=== PATIENT | male | born 1945 | race Hispanic/Latino ===

== ENCOUNTER 2020-11-09 13:49 | Inpatient (IN) | payer MEDICARE, MEDICAID ==
[~2020-11-09] VITALS: Ht 175.3 cm; Wt 68.9 kg
[2020-11-09 13:51] VITALS: BP 112/67
[2020-11-09 14:29] LABS: BASOPHILS % (AUTO) 0.4 % (0.0-5.0); EOSINOPHILS % (AUTO) 0.3 % (0.0-8.0); HEMATOCRIT 49.3 % (42-54); LYMPHOCYTES % (AUTO) 5.7 % (21.0-51.0); MEAN CORPUSCULAR HEMOGLOBIN 29.8 pg (27.0-33.0); MEAN CORPUSCULAR HGB CONC 32.7 g/dL (32.0-36.0); MEAN CORPUSCULAR VOLUME 91.3 fL (79-99); MONOCYTES % (AUTO) 4.8 % (3.0-13.0); NEUTROPHILS % (AUTO) 86.8 % (40.0-77.0); PLATELET COUNT (AUTO) 266 K/uL (130-400); RED CELL DISTRIBUTION WIDTH 14.5 % (11.0-15.5); WHITE BLOOD COUNT (AUTO) 14.3 K/uL (4.8-10.8)
[2020-11-09 14:51] LABS: ALBUMIN 1.9 g/dL (3.5-5.0); BILIRUBIN,TOTAL 1.1 mg/dL (0.2-1.0); CREATININE 3.2 mg/dL (0.5-1.5); POTASSIUM 5.5 mmol/L (3.5-5.1); TOTAL PROTEIN, SERUM 6.9 g/dL (6.0-8.3); TROPONIN I 0.06 ng/mL (0.00-0.06)
[2020-11-09] MEDS ORDERED: FAMOTIDINE 20MG VIAL IV SCH (15:00)
[2020-11-09] MEDS ORDERED: 0.9%NACL 1000ML 1,000 ML IV SCH (15:00)
[2020-11-09] MEDS ORDERED: SOLU-MEDROL 125MG VIAL IVP SCH (15:00)
[2020-11-09 15:23] LABS: CRP QUANTITATIVE 515.9 mg/L (0.00-9.0)
[2020-11-09] MEDS ORDERED: ACETAMINOPHEN 650 MG SUPPOSITORY RC ONE (15:30)
[2020-11-09] MEDS: ENOXAPARIN SODIUM 80 MG/0.8 ML SQ SCH (16:51)
[2020-11-09 16:52] VITALS: BP 111/66
[2020-11-09] MEDS ORDERED: ONDANSETRON 4MG INJ IV PRN (17:00)
[2020-11-09] MEDS ORDERED: [UNRECOGNIZED DRUG - REMARK] MISC SCH (17:00)
[2020-11-09] MEDS ORDERED: 0.9%NACL 1000ML 500 ML IV ONE (17:00)
[2020-11-09] MEDS: HEPARIN 5,000 UNIT VIAL SQ SCH (17:30)
[2020-11-09] MEDS ORDERED: HEPARIN 5,000 UNIT VIAL SQ SCH (17:30)
[2020-11-09 17:35] LABS: HEMOGLOBIN A1C 5.8 % (4.0-6.0)
[2020-11-09 17:58] VITALS: BP 111/74
[2020-11-09 18:18] LABS: CREATININE 3.2 mg/dL (0.5-1.5); POTASSIUM 5.4 mmol/L (3.5-5.1)
[2020-11-09] MEDS ORDERED: ALBUTEROL INHALER 90MCG/INH IH SCH (19:00)
[2020-11-09 19:05] VITALS: BP 108/12
[2020-11-09 20:37] LABS: ABG HCO3 19.2 mmol/L (21.0-28.0); ABG OXYGEN SATURATION 97.9 % (95.0-99.0); ABG PCO2 34 mmHg (35-48)
[2020-11-09] MEDS: DOXYCYCLINE 100MG+NS 250ML IV SCH (21:23)
[2020-11-09] MEDS: SOLU-MEDROL 40MG VIAL IVP SCH (21:23)
[2020-11-09] MEDS: CEFTRIAXONE 1G VIAL IVP SCH (21:23)
[2020-11-09] MEDS: FAMOTIDINE 20MG TAB PO SCH (21:23)
[2020-11-09] MEDS: ALBUTEROL INHALER 90MCG/INH IH SCH (21:34)
[2020-11-09] MEDS ORDERED: KAYEXALATE 15GM/60ML PO ONE (22:30)
[2020-11-09 22:37] VITALS: BP 106/81
[2020-11-10] MEDS: HEPARIN 5,000 UNIT VIAL SQ SCH ×3 (02:30→16:45)
[2020-11-10] MEDS: ALBUTEROL INHALER 90MCG/INH IH SCH ×4 (02:52→19:38)
[2020-11-10 03:17] VITALS: BP 106/64
[2020-11-10 03:33] LABS: BILIRUBIN,URINE Negative (NEGATIVE); COLOR,URINE Yellow (YELLOW); GLUCOSE, URINE (UA) Negative (NEGATIVE); KETONES,URINE 15 mg/dL (NEGATIVE); LEUKOCYTE ESTERASE ,URINE Negative (NEGATIVE); NITRATE,URINE Negative (NEGATIVE); OCCULT BLOOD,URINE Negative (NEGATIVE); PROTEIN,URINE POS 1+ mg/dL (NEGATIVE)
[2020-11-10 03:35] LABS: CREATININE,URINE RANDOM 98 mg/dL (30-135); SODIUM,URINE RANDOM 24 mmol/l (40-220)
[2020-11-10 03:36] LABS: APPEARANCE,URINE HAZY (CLEAR)
[2020-11-10 03:41] LABS: BACTERIA,URINE Moderate /HPF (None Seen); RBC,URINE 0-1 /HPF (0-1); SQUAMOUS EPITHELIAL CELL,UR 0-2 /HPF (0-2)
[2020-11-10 04:13] VITALS: BP 134/71
[2020-11-10 06:06] LABS: BASOPHILS % (AUTO) 0.5 % (0.0-5.0); EOSINOPHILS % (AUTO) 0.1 % (0.0-8.0); HEMATOCRIT 43.7 % (42-54); LYMPHOCYTES % (AUTO) 5.9 % (21.0-51.0); MEAN CORPUSCULAR HEMOGLOBIN 29.8 pg (27.0-33.0); MEAN CORPUSCULAR HGB CONC 31.6 g/dL (32.0-36.0); MEAN CORPUSCULAR VOLUME 94.4 fL (79-99); MONOCYTES % (AUTO) 3.1 % (3.0-13.0); NEUTROPHILS % (AUTO) 85.4 % (40.0-77.0); PLATELET COUNT (AUTO) 264 K/uL (130-400); RED BLOOD CELL COUNT(AUTO) 4.63 MIL/uL (4.50-6.20); RED CELL DISTRIBUTION WIDTH 15.1 % (11.0-15.5); WHITE BLOOD COUNT (AUTO) 11.6 K/uL (4.8-10.8)
[2020-11-10 06:28] LABS: BILIRUBIN,TOTAL 0.8 mg/dL (0.2-1.0); CREATININE 2.7 mg/dL (0.5-1.5); TOTAL PROTEIN, SERUM 6.3 g/dL (6.0-8.3)
[2020-11-10 06:35] LABS: ALBUMIN 1.8 g/dL (3.5-5.0)
[2020-11-10 06:36] LABS: CRP QUANTITATIVE 345.2 mg/L (0.00-9.0)
[2020-11-10] MEDS ORDERED: PANT40TA54 PO (06:45)
[2020-11-10] MEDS ORDERED: LOSA25TA41 PO (06:45)
[2020-11-10] MEDS ORDERED: EZET10TA48 PO (06:45)
[2020-11-10] MEDS: ENOXAPARIN SODIUM 80 MG/0.8 ML SQ SCH (07:31)
[2020-11-10 08:18] LABS: ABG BASE EXCESS -5.8 mmol/L (-2.0-3.0); ABG HCO3 19.1 mmol/L (21.0-28.0); ABG OXYGEN SATURATION 96.3 % (95.0-99.0); ABG PCO2 36 mmHg (35-48)
[2020-11-10] MEDS: DOXYCYCLINE 100MG+NS 250ML IV SCH ×2 (08:19→19:37)
[2020-11-10] MEDS: FAMOTIDINE 20MG TAB PO SCH (08:19)
[2020-11-10] MEDS: CEFTRIAXONE 1G VIAL IVP SCH ×2 (08:19→19:37)
[2020-11-10] MEDS: SOLU-MEDROL 40MG VIAL IVP SCH ×2 (08:20→20:00)
[2020-11-10 08:22] VITALS: BP 113/62
[2020-11-10] MEDS ORDERED: DEXAMETHASONE 4 MG TAB PO SCH (09:00)
[2020-11-10] MEDS ORDERED: ENOXAPARIN SODIUM 40 MG/0.4 ML SYRINGE SQ SCH (09:00)
[2020-11-10] MEDS ORDERED: FUROSEMIDE 40MG VIAL IV SCH (09:57)
[2020-11-10 11:00] VITALS: BP 129/71
[2020-11-10 16:01] VITALS: BP 110/76
[2020-11-10 19:26] LABS: PROTHROMBIN TIME 10.9 SEC (9.6-11.6)
[2020-11-10 19:27] LABS: PARTIAL THROMBOPLASTIN TIME 39.7 SEC (26.3-35.5)
[2020-11-10 20:00] VITALS: BP_SYST 135; BP_SYST 137; BP_DIAS 60; BP_DIAS 68
[2020-11-11] VITALS: BP 126/72
[2020-11-11] MEDS: HEPARIN 5,000 UNIT VIAL SQ SCH ×3 (01:49→16:21)
[2020-11-11] MEDS: ALBUTEROL INHALER 90MCG/INH IH SCH ×4 (01:49→19:33)
[2020-11-11 04:00] VITALS: BP 139/71
[2020-11-11 06:14] LABS: BASOPHILS % (AUTO) 0.7 % (0.0-5.0); EOSINOPHILS % (AUTO) 0.1 % (0.0-8.0); HEMATOCRIT 44.5 % (42-54); LYMPHOCYTES % (AUTO) 5.7 % (21.0-51.0); MEAN CORPUSCULAR HEMOGLOBIN 29.7 pg (27.0-33.0); MEAN CORPUSCULAR VOLUME 95.7 fL (79-99); MONOCYTES % (AUTO) 5.4 % (3.0-13.0); NEUTROPHILS % (AUTO) 82.3 % (40.0-77.0); NUCLEATED RED BLOOD CELLS 0.1 % (0.0-0.19); PLATELET COUNT (AUTO) 333 K/uL (130-400); RED BLOOD CELL COUNT(AUTO) 4.65 MIL/uL (4.50-6.20); RED CELL DISTRIBUTION WIDTH 15.4 % (11.0-15.5); WHITE BLOOD COUNT (AUTO) 17.2 K/uL (4.8-10.8)
[2020-11-11 06:31] LABS: ALBUMIN 1.9 g/dL (3.5-5.0); BILIRUBIN,TOTAL 0.6 mg/dL (0.2-1.0); CREATININE 2.4 mg/dL (0.5-1.5); POTASSIUM 4.3 mmol/L (3.5-5.1); TOTAL PROTEIN, SERUM 6.5 g/dL (6.0-8.3)
[2020-11-11 08:00] VITALS: BP 136/73
[2020-11-11] MEDS: DOXYCYCLINE 100MG+NS 250ML IV SCH ×2 (08:32→19:34)
[2020-11-11] MEDS: CEFTRIAXONE 1G VIAL IVP SCH ×2 (08:32→19:34)
[2020-11-11] MEDS: FAMOTIDINE 20MG TAB PO SCH (08:32)
[2020-11-11] MEDS: SOLU-MEDROL 40MG VIAL IVP SCH ×2 (08:33→20:00)
[2020-11-11 12:00] VITALS: BP 159/80
[2020-11-11] MEDS: DEXTROSE 5%-WATER 1,000 ML IV SCH (15:01)
[2020-11-11 16:00] VITALS: BP 158/90
[2020-11-11 16:51] LABS: CREATININE,URINE RANDOM 90 mg/dL (30-135); SODIUM,URINE RANDOM 22 mmol/l (40-220)
[2020-11-11 20:00] VITALS: BP 138/83
[2020-11-12] VITALS: BP 157/81
[2020-11-12] MEDS: ALBUTEROL INHALER 90MCG/INH IH SCH ×4 (01:06→19:34)
[2020-11-12] MEDS: HEPARIN 5,000 UNIT VIAL SQ SCH ×3 (01:06→16:47)
[2020-11-12 04:00] VITALS: BP 145/79
[2020-11-12 05:46] LABS: BASOPHILS % (AUTO) 0.5 % (0.0-5.0); HEMATOCRIT 40.7 % (42-54); MEAN CORPUSCULAR HEMOGLOBIN 30.7 pg (27.0-33.0); MEAN CORPUSCULAR HGB CONC 32.4 g/dL (32.0-36.0); MEAN CORPUSCULAR VOLUME 94.7 fL (79-99); MONOCYTES % (AUTO) 5.4 % (3.0-13.0); NUCLEATED RED BLOOD CELLS 0.1 % (0.0-0.19); PLATELET COUNT (AUTO) 344 K/uL (130-400); RED CELL DISTRIBUTION WIDTH 15.4 % (11.0-15.5); WHITE BLOOD COUNT (AUTO) 15.9 K/uL (4.8-10.8)
[2020-11-12] MEDS: DEXTROSE 5%-WATER 1,000 ML IV SCH ×2 (06:09→11:00)
[2020-11-12 06:14] LABS: ALBUMIN 2.1 g/dL (3.5-5.0); BILIRUBIN,TOTAL 0.7 mg/dL (0.2-1.0); CREATININE 2.2 mg/dL (0.5-1.5); CRP QUANTITATIVE 88.8 mg/L (0.00-9.0); MAGNESIUM 3.2 mg/dL (1.80-2.40); POTASSIUM 4.3 mmol/L (3.5-5.1); TOTAL PROTEIN, SERUM 6.3 g/dL (6.0-8.3)
[2020-11-12] MEDS: CEFTRIAXONE 1G VIAL IVP SCH ×2 (08:30→19:34)
[2020-11-12] MEDS: FAMOTIDINE 20MG TAB PO SCH (08:30)
[2020-11-12] MEDS: DOXYCYCLINE 100MG+NS 250ML IV SCH ×2 (08:30→19:34)
[2020-11-12] MEDS: SOLU-MEDROL 40MG VIAL IVP SCH ×2 (08:30→20:23)
[2020-11-12 10:23] LABS: ABG BASE EXCESS -1.6 mmol/L (-2.0-3.0); ABG HCO3 21.9 mmol/L (21.0-28.0); ABG OXYGEN SATURATION 91.2 % (95.0-99.0); ABG PCO2 34 mmHg (35-48)
[2020-11-12] MEDS ORDERED: AMLODIPINE 5 MG TAB PO SCH (10:30)
[2020-11-12 12:00] VITALS: BP 155/97
[2020-11-12] MEDS ORDERED: DEXTROSE 5%-WATER 1,000 ML IV ONE (13:30)
[2020-11-12 16:00] VITALS: BP 153/92
[2020-11-12] MEDS ORDERED: 0.9% NACL 250ML 250 ML ONE (19:32)
[2020-11-12] MEDS: INSULIN HUMULIN R 100 UNIT/ML 3ML SQ SCH (19:41)
[2020-11-12 20:00] VITALS: BP 150/80
[2020-11-13] VITALS (7 sets, daily range): BP systolic 101–146; BP diastolic 59–83
[2020-11-13] MEDS: HEPARIN 5,000 UNIT VIAL SQ SCH ×3 (00:30→17:54)
[2020-11-13] MEDS: INSULIN HUMULIN R 100 UNIT/ML 3ML SQ SCH ×4 (00:31→17:56)
[2020-11-13] MEDS: ALBUTEROL INHALER 90MCG/INH IH SCH ×4 (01:19→21:44)
[2020-11-13] MEDS: DEXTROSE 5%-WATER 1,000 ML IV SCH ×2 (03:20→21:44)
[2020-11-13 04:47] LABS: BASOPHILS % (AUTO) 0.3 % (0.0-5.0); HEMATOCRIT 40.9 % (42-54); LYMPHOCYTES % (AUTO) 3.1 % (21.0-51.0); MEAN CORPUSCULAR HEMOGLOBIN 29.6 pg (27.0-33.0); MEAN CORPUSCULAR HGB CONC 30.6 g/dL (32.0-36.0); MEAN CORPUSCULAR VOLUME 96.9 fL (79-99); MONOCYTES % (AUTO) 4.3 % (3.0-13.0); NEUTROPHILS % (AUTO) 86.4 % (40.0-77.0); NUCLEATED RED BLOOD CELLS 0.1 % (0.0-0.19); PLATELET COUNT (AUTO) 340 K/uL (130-400); RED BLOOD CELL COUNT(AUTO) 4.22 MIL/uL (4.50-6.20); RED CELL DISTRIBUTION WIDTH 15.3 % (11.0-15.5)
[2020-11-13 05:00] LABS: CREATININE 2.1 mg/dL (0.5-1.5); CRP QUANTITATIVE 54.2 mg/L (0.00-9.0); POTASSIUM 4.4 mmol/L (3.5-5.1)
[2020-11-13] MEDS ORDERED: PANTOPRAZOLE 40 MG TAB DR PO SCH ×2 (08:14→09:00)
[2020-11-13] MEDS ORDERED: 0.9% NACL 250ML 250 ML ONE (08:18)
[2020-11-13] MEDS: DOXYCYCLINE 100MG+NS 250ML IV SCH ×2 (08:22→21:12)
[2020-11-13] MEDS: CEFTRIAXONE 1G VIAL IVP SCH ×2 (08:22→21:12)
[2020-11-13] MEDS: AMLODIPINE 5 MG TAB PO SCH (08:28)
[2020-11-13] MEDS ORDERED: DEXAMETHASONE SOD PHOSPHATE 4 MG/ML 1ML VIAL IVP SCH (09:00)
[2020-11-13 14:46] LABS: CREATININE 1.8 mg/dL (0.5-1.5); POTASSIUM 4.9 mmol/L (3.5-5.1)
[2020-11-13] MEDS ORDERED: INSULIN GLARGINE 100 UNITS/ML 10 ML VIAL SQ SCH (15:00)
[2020-11-13] MEDS ORDERED: LACTULOSE 20 GM/30 ML UDCUP PO PRN (16:00)
[2020-11-13 20:51] LABS: CREATININE 1.9 mg/dL (0.5-1.5); POTASSIUM 4.5 mmol/L (3.5-5.1)
[2020-11-14] MEDS: HEPARIN 5,000 UNIT VIAL SQ SCH ×3 (01:30→16:52)
[2020-11-14] MEDS: ALBUTEROL INHALER 90MCG/INH IH SCH ×4 (02:00→19:41)
[2020-11-14 04:30] VITALS: BP 124/72
[2020-11-14 05:53] LABS: BASOPHILS % (AUTO) 0.3 % (0.0-5.0); HEMATOCRIT 35.9 % (42-54); LYMPHOCYTES % (AUTO) 2.8 % (21.0-51.0); MEAN CORPUSCULAR HEMOGLOBIN 30.4 pg (27.0-33.0); MONOCYTES % (AUTO) 7.6 % (3.0-13.0); NEUTROPHILS % (AUTO) 84.3 % (40.0-77.0); NUCLEATED RED BLOOD CELLS 0.1 % (0.0-0.19); PLATELET COUNT (AUTO) 327 K/uL (130-400); RED BLOOD CELL COUNT(AUTO) 3.78 MIL/uL (4.50-6.20); RED CELL DISTRIBUTION WIDTH 14.9 % (11.0-15.5); WHITE BLOOD COUNT (AUTO) 20.6 K/uL (4.8-10.8)
[2020-11-14 06:13] LABS: ALBUMIN 2.1 g/dL (3.5-5.0); BILIRUBIN,TOTAL 0.4 mg/dL (0.2-1.0); CREATININE 1.7 mg/dL (0.5-1.5); MAGNESIUM 2.5 mg/dL (1.80-2.40); POTASSIUM 4.7 mmol/L (3.5-5.1); TOTAL PROTEIN, SERUM 5.4 g/dL (6.0-8.3)
[2020-11-14] MEDS: INSULIN HUMULIN R 100 UNIT/ML 3ML SQ SCH ×4 (06:31→17:21)
[2020-11-14 07:29] VITALS: BP 129/71
[2020-11-14] MEDS ORDERED: LANSOPRAZOLE 15 MG SOLU TAB PO SCH (07:30)
[2020-11-14] MEDS ORDERED: INSULIN GLARGINE 100 UNITS/ML 10 ML VIAL SQ SCH (09:00)
[2020-11-14] MEDS ORDERED: ZOSYN 3.375GM+NS 50ML 50 ML ONE (10:18)
[2020-11-14] MEDS: DOXYCYCLINE 100MG+NS 250ML IV SCH ×2 (10:22→19:41)
[2020-11-14] MEDS ORDERED: ZOSYN 3.375GM+NS 50ML 3.38 GM in 0.9%NACL 50ML 50 ML IV SCH (10:30)
[2020-11-14] MEDS: AMLODIPINE 5 MG TAB PO SCH (10:31)
[2020-11-14] MEDS: DEXAMETHASONE 4 MG TAB PO SCH (10:31)
[2020-11-14] MEDS: ZOSYN 3.375GM+NS 50ML 50 ML IV SCH ×2 (10:36→20:00)
[2020-11-14] MEDS: DEXTROSE 5%-WATER 1,000 ML IV SCH ×2 (10:36→16:44)
[2020-11-14 11:28] VITALS: BP 117/64
[2020-11-14 16:07] VITALS: BP 104/55
[2020-11-14 20:00] VITALS: BP 98/57
[2020-11-14 23:54] VITALS: BP 114/67
[2020-11-15] MEDS: HEPARIN 5,000 UNIT VIAL SQ SCH (00:47)
[2020-11-15] MEDS: INSULIN HUMULIN R 100 UNIT/ML 3ML SQ SCH ×4 (00:48→18:00)
[2020-11-15] MEDS: ALBUTEROL INHALER 90MCG/INH IH SCH ×3 (01:03→14:09)
[2020-11-15] MEDS: DEXTROSE 5%-WATER 1,000 ML IV SCH (01:03)
[2020-11-15 04:10] VITALS: BP 133/68
[2020-11-15 05:51] LABS: BASOPHILS % (AUTO) 0.4 % (0.0-5.0); HEMATOCRIT 30.6 % (42-54); LYMPHOCYTES % (AUTO) 2.7 % (21.0-51.0); MEAN CORPUSCULAR HEMOGLOBIN 29.9 pg (27.0-33.0); MEAN CORPUSCULAR HGB CONC 31.7 g/dL (32.0-36.0); MEAN CORPUSCULAR VOLUME 94.4 fL (79-99); MONOCYTES % (AUTO) 5.9 % (3.0-13.0); NEUTROPHILS % (AUTO) 84.6 % (40.0-77.0); NUCLEATED RED BLOOD CELLS 0.1 % (0.0-0.19); PLATELET COUNT (AUTO) 266 K/uL (130-400); RED BLOOD CELL COUNT(AUTO) 3.24 MIL/uL (4.50-6.20); RED CELL DISTRIBUTION WIDTH 14.2 % (11.0-15.5); WHITE BLOOD COUNT (AUTO) 26.4 K/uL (4.8-10.8)
[2020-11-15 06:05] LABS: ALBUMIN 1.9 g/dL (3.5-5.0); BILIRUBIN,TOTAL 0.3 mg/dL (0.2-1.0); CREATININE 1.4 mg/dL (0.5-1.5); CRP QUANTITATIVE 16.2 mg/L (0.00-9.0); POTASSIUM 4.3 mmol/L (3.5-5.1); TOTAL PROTEIN, SERUM 4.8 g/dL (6.0-8.3)
[2020-11-15 08:00] VITALS: BP 124/61
[2020-11-15] MEDS: DOXYCYCLINE 100MG+NS 250ML IV SCH (08:51)
[2020-11-15] MEDS: ZOSYN 3.375GM+NS 50ML 50 ML IV SCH ×2 (08:51→21:35)
[2020-11-15] MEDS: PANTOPRAZOLE 40 MG/VIAL IVP SCH ×2 (08:52→21:35)
[2020-11-15] MEDS: DEXAMETHASONE 4 MG TAB PO SCH (08:53)
[2020-11-15] MEDS: AMLODIPINE 5 MG TAB PO SCH (08:53)
[2020-11-15] MEDS: INSULIN GLARGINE 100 UNITS/ML 10 ML VIAL SQ SCH (08:55)
[2020-11-15 12:00] VITALS: BP 113/64
[2020-11-15] MEDS: LEVOFLOXACIN 500 MG/D5W 100 ML 100 ML IV SCH (14:48)
[2020-11-15 16:00] VITALS: BP 98/63
[2020-11-15 20:17] VITALS: BP 99/61
[2020-11-15 23:24] VITALS: BP 158/62
[2020-11-16 04:08] VITALS: BP 113/68
[2020-11-16 05:52] LABS: BASOPHILS % (AUTO) 0.3 % (0.0-5.0); HEMATOCRIT 30.1 % (42-54); LYMPHOCYTES % (AUTO) 3.8 % (21.0-51.0); MEAN CORPUSCULAR HEMOGLOBIN 29.6 pg (27.0-33.0); MEAN CORPUSCULAR HGB CONC 31.9 g/dL (32.0-36.0); MEAN CORPUSCULAR VOLUME 92.9 fL (79-99); MONOCYTES % (AUTO) 5.7 % (3.0-13.0); NEUTROPHILS % (AUTO) 82.3 % (40.0-77.0); NUCLEATED RED BLOOD CELLS 0.1 % (0.0-0.19); PLATELET COUNT (AUTO) 315 K/uL (130-400); RED BLOOD CELL COUNT(AUTO) 3.24 MIL/uL (4.50-6.20); RED CELL DISTRIBUTION WIDTH 14.1 % (11.0-15.5); WHITE BLOOD COUNT (AUTO) 28.6 K/uL (4.8-10.8)
[2020-11-16] MEDS: INSULIN HUMULIN R 100 UNIT/ML 3ML SQ SCH ×3 (06:00→18:39)
[2020-11-16 06:02] LABS: CREATININE 1.2 mg/dL (0.5-1.5); MAGNESIUM 1.8 mg/dL (1.80-2.40); POTASSIUM 4.4 mmol/L (3.5-5.1)
[2020-11-16 08:00] VITALS: BP 123/92
[2020-11-16] MEDS: ALBUTEROL INHALER 90MCG/INH IH SCH ×3 (08:00→20:38)
[2020-11-16] MEDS: ZOSYN 3.375GM+NS 50ML 50 ML IV SCH ×2 (09:15→20:38)
[2020-11-16] MEDS: PANTOPRAZOLE 40 MG/VIAL IVP SCH ×2 (09:16→20:38)
[2020-11-16] MEDS: AMLODIPINE 5 MG TAB PO SCH (09:18)
[2020-11-16] MEDS: DEXAMETHASONE 4 MG TAB PO SCH (09:18)
[2020-11-16] MEDS: INSULIN GLARGINE 100 UNITS/ML 10 ML VIAL SQ SCH (09:20)
[2020-11-16 12:00] VITALS: BP 110/62
[2020-11-16 16:00] VITALS: BP 110/59
[2020-11-16] MEDS: LEVOFLOXACIN 500 MG/D5W 100 ML 100 ML IV SCH (17:54)
[2020-11-16 20:12] VITALS: BP 112/62
[2020-11-17] VITALS (7 sets, daily range): BP systolic 122–146; BP diastolic 61–72
[2020-11-17] MEDS: ALBUTEROL INHALER 90MCG/INH IH SCH ×4 (01:08→19:57)
[2020-11-17] MEDS: INSULIN HUMULIN R 100 UNIT/ML 3ML SQ SCH ×4 (06:00→17:59)
[2020-11-17 06:05] LABS: BASOPHILS % (AUTO) 0.1 % (0.0-5.0); EOSINOPHILS % (AUTO) 0.1 % (0.0-8.0); HEMATOCRIT 28.8 % (42-54); LYMPHOCYTES % (AUTO) 3.5 % (21.0-51.0); MEAN CORPUSCULAR HEMOGLOBIN 30.1 pg (27.0-33.0); MEAN CORPUSCULAR HGB CONC 32.6 g/dL (32.0-36.0); MEAN CORPUSCULAR VOLUME 92.3 fL (79-99); MONOCYTES % (AUTO) 5.5 % (3.0-13.0); NEUTROPHILS % (AUTO) 81.7 % (40.0-77.0); NUCLEATED RED BLOOD CELLS 0.2 % (0.0-0.19); PLATELET COUNT (AUTO) 339 K/uL (130-400); RED BLOOD CELL COUNT(AUTO) 3.12 MIL/uL (4.50-6.20); RED CELL DISTRIBUTION WIDTH 14.1 % (11.0-15.5)
[2020-11-17 06:12] LABS: WHITE BLOOD COUNT (AUTO) 31.3 K/uL (4.8-10.8)
[2020-11-17 06:24] LABS: CREATININE 1.2 mg/dL (0.5-1.5); CRP QUANTITATIVE 10.1 mg/L (0.00-9.0); POTASSIUM 4.4 mmol/L (3.5-5.1)
[2020-11-17 07:12] LABS: LYMPHOCYTES % (MANUAL) 10 % (22-44); MAN.DIFF COMMENT-IMPRESSION MANUAL DIFFERENTIAL; MONOCYTES % (MANUAL) 14 % (2-9); PLATELET MORPHOLOGY COMMENT ADEQUATE; SEGMENTED NEUTROPHILS % 76 % (40-70)
[2020-11-17] MEDS: DEXAMETHASONE 4 MG TAB PO SCH (09:00)
[2020-11-17] MEDS: AMLODIPINE 5 MG TAB PO SCH (09:00)
[2020-11-17] MEDS: ZOSYN 3.375GM+NS 50ML 50 ML IV SCH ×2 (09:00→19:56)
[2020-11-17] MEDS: PANTOPRAZOLE 40 MG/VIAL IVP SCH ×2 (09:00→19:56)
[2020-11-17] MEDS: INSULIN GLARGINE 100 UNITS/ML 10 ML VIAL SQ SCH (11:07)
[2020-11-17] MEDS: LEVOFLOXACIN 500 MG/D5W 100 ML 100 ML IV SCH (14:37)
[2020-11-18] MEDS: ALBUTEROL INHALER 90MCG/INH IH SCH ×4 (02:00→20:00)
[2020-11-18 04:38] VITALS: BP 130/75
[2020-11-18] MEDS: INSULIN HUMULIN R 100 UNIT/ML 3ML SQ SCH ×4 (06:00→18:00)
[2020-11-18 06:54] LABS: HEMATOCRIT 29.7 % (42-54); MEAN CORPUSCULAR HGB CONC 32.7 g/dL (32.0-36.0); MONOCYTES % (AUTO) 5.9 % (3.0-13.0); NEUTROPHILS % (AUTO) 81.4 % (40.0-77.0); PLATELET COUNT (AUTO) 373 K/uL (130-400); RED BLOOD CELL COUNT(AUTO) 3.23 MIL/uL (4.50-6.20)
[2020-11-18 06:59] LABS: WHITE BLOOD COUNT (AUTO) 30.6 K/uL (4.8-10.8)
[2020-11-18 07:09] LABS: CREATININE 1.2 mg/dL (0.5-1.5); CRP QUANTITATIVE 13.9 mg/L (0.00-9.0); POTASSIUM 4.6 mmol/L (3.5-5.1)
[2020-11-18 08:00] VITALS: BP 113/55
[2020-11-18 08:04] LABS: BAND NEUTROPHILS % (MANUAL) 6 % (0-2); LYMPHOCYTES % (MANUAL) 3 % (22-44); MONOCYTES % (MANUAL) 4 % (2-9); SEGMENTED NEUTROPHILS % 87 % (40-70)
[2020-11-18 08:05] LABS: MAN.DIFF COMMENT-IMPRESSION MANUAL DIFFERENTIAL; PLATELET MORPHOLOGY COMMENT ADEQUATE
[2020-11-18] MEDS: AMLODIPINE 5 MG TAB PO SCH ×2 (09:00→09:11)
[2020-11-18] MEDS: ZOSYN 3.375GM+NS 50ML 50 ML IV SCH ×2 (09:10→20:49)
[2020-11-18] MEDS: PANTOPRAZOLE 40 MG/VIAL IVP SCH ×2 (09:10→20:50)
[2020-11-18] MEDS: DEXAMETHASONE 4 MG TAB PO SCH (09:11)
[2020-11-18] MEDS: INSULIN GLARGINE 100 UNITS/ML 10 ML VIAL SQ SCH (09:23)
[2020-11-18 12:00] VITALS: BP_SYST 108; BP_SYST 121; BP_DIAS 53; BP_DIAS 77
[2020-11-18] MEDS: LEVOFLOXACIN 500 MG/D5W 100 ML 100 ML IV SCH (13:40)
[2020-11-18 18:30] VITALS: BP_SYST 117; BP_SYST 120; BP_DIAS 62; BP_DIAS 65
[2020-11-18 20:00] VITALS: BP 133/75
[2020-11-19] VITALS: BP 145/72
[2020-11-19] MEDS: ALBUTEROL INHALER 90MCG/INH IH SCH ×4 (02:00→20:00)
[2020-11-19 04:00] VITALS: BP 130/62
[2020-11-19] MEDS: INSULIN HUMULIN R 100 UNIT/ML 3ML SQ SCH ×4 (06:00→16:21)
[2020-11-19] MEDS: HEPARIN 5,000 UNIT VIAL SQ SCH ×3 (06:30→22:30)
[2020-11-19 06:48] LABS: BASOPHILS % (AUTO) 0.6 % (0.0-5.0); EOSINOPHILS % (AUTO) 0.1 % (0.0-8.0); HEMATOCRIT 28.7 % (42-54); LYMPHOCYTES % (AUTO) 5.2 % (21.0-51.0); MEAN CORPUSCULAR HEMOGLOBIN 29.6 pg (27.0-33.0); MEAN CORPUSCULAR HGB CONC 31.7 g/dL (32.0-36.0); MEAN CORPUSCULAR VOLUME 93.5 fL (79-99); MONOCYTES % (AUTO) 7.4 % (3.0-13.0); PLATELET COUNT (AUTO) 356 K/uL (130-400); RED BLOOD CELL COUNT(AUTO) 3.07 MIL/uL (4.50-6.20); RED CELL DISTRIBUTION WIDTH 14.2 % (11.0-15.5); WHITE BLOOD COUNT (AUTO) 26.8 K/uL (4.8-10.8)
[2020-11-19 07:00] LABS: CREATININE 1.1 mg/dL (0.5-1.5); CRP QUANTITATIVE 7.3 mg/L (0.00-9.0); POTASSIUM 3.9 mmol/L (3.5-5.1)
[2020-11-19] MEDS: ZOSYN 3.375GM+NS 50ML 50 ML IV SCH ×2 (09:40→20:43)
[2020-11-19] MEDS: DEXAMETHASONE 4 MG TAB PO SCH (09:40)
[2020-11-19] MEDS: PANTOPRAZOLE 40 MG/VIAL IVP SCH ×2 (09:40→20:43)
[2020-11-19] MEDS: AMLODIPINE 5 MG TAB PO SCH (09:40)
[2020-11-19] MEDS: INSULIN GLARGINE 100 UNITS/ML 10 ML VIAL SQ SCH (09:41)
[2020-11-19 12:25] VITALS: BP 109/58
[2020-11-19 16:00] VITALS: BP 109/52
[2020-11-19] MEDS: LEVOFLOXACIN 500 MG/D5W 100 ML 100 ML IV SCH (16:20)
[2020-11-19] MEDS ORDERED: DRONABINOL 2.5 MG CAP PO ONE (20:00)
[2020-11-19 20:02] VITALS: BP 100/58
[2020-11-19] MEDS ORDERED: MIRTAZAPINE 15 MG TABLET PO SCH (21:00)
[2020-11-19 23:28] VITALS: BP 117/66
[2020-11-20] MEDS: ALBUTEROL INHALER 90MCG/INH IH SCH ×4 (02:00→20:04)
[2020-11-20 05:36] VITALS: BP 113/61
[2020-11-20] MEDS: INSULIN HUMULIN R 100 UNIT/ML 3ML SQ SCH ×4 (06:00→17:02)
[2020-11-20] MEDS: DEXTROSE 5%-WATER 1,000 ML IV SCH ×2 (06:30→12:02)
[2020-11-20] MEDS ORDERED: DEXTROSE 50%-WATER 50 ML DISP.SYRIN IV ONE ×2 (07:13→11:59)
[2020-11-20] MEDS: HEPARIN 5,000 UNIT VIAL SQ SCH ×3 (07:24→22:32)
[2020-11-20 08:00] VITALS: BP 115/58
[2020-11-20] MEDS: DEXAMETHASONE 4 MG TAB PO SCH (09:49)
[2020-11-20] MEDS: AMLODIPINE 5 MG TAB PO SCH (09:49)
[2020-11-20] MEDS: ZOSYN 3.375GM+NS 50ML 50 ML IV SCH (09:49)
[2020-11-20] MEDS: PANTOPRAZOLE 40 MG/VIAL IVP SCH ×2 (09:49→20:03)
[2020-11-20] MEDS: INSULIN GLARGINE 100 UNITS/ML 10 ML VIAL SQ SCH (10:01)
[2020-11-20 11:26] LABS: BASOPHILS % (AUTO) 0.6 % (0.0-5.0); EOSINOPHILS % (AUTO) 0.2 % (0.0-8.0); HEMATOCRIT 30.1 % (42-54); LYMPHOCYTES % (AUTO) 6.1 % (21.0-51.0); MEAN CORPUSCULAR HEMOGLOBIN 30.2 pg (27.0-33.0); MEAN CORPUSCULAR HGB CONC 33.2 g/dL (32.0-36.0); MEAN CORPUSCULAR VOLUME 90.9 fL (79-99); MONOCYTES % (AUTO) 8.2 % (3.0-13.0); NEUTROPHILS % (AUTO) 78.7 % (40.0-77.0); PLATELET COUNT (AUTO) 375 K/uL (130-400); RED BLOOD CELL COUNT(AUTO) 3.31 MIL/uL (4.50-6.20); RED CELL DISTRIBUTION WIDTH 14.5 % (11.0-15.5); WHITE BLOOD COUNT (AUTO) 19.6 K/uL (4.8-10.8)
[2020-11-20 11:34] LABS: CREATININE 1.3 mg/dL (0.5-1.5)
[2020-11-20 12:00] VITALS: BP 117/59
[2020-11-20] MEDS: LEVOFLOXACIN 500 MG/D5W 100 ML 100 ML IV SCH (13:53)
[2020-11-20 16:00] VITALS: BP 110/69
[2020-11-20] MEDS ORDERED: DRONABINOL 2.5 MG CAP PO ONE (19:16)
[2020-11-20 20:01] VITALS: BP 134/62
[2020-11-21] VITALS (7 sets, daily range): BP systolic 115–152; BP diastolic 55–108
[2020-11-21] MEDS: ALBUTEROL INHALER 90MCG/INH IH SCH ×3 (01:22→14:22)
[2020-11-21] MEDS: INSULIN HUMULIN R 100 UNIT/ML 3ML SQ SCH ×4 (06:00→16:03)
[2020-11-21] MEDS: HEPARIN 5,000 UNIT VIAL SQ SCH ×2 (06:22→14:20)
[2020-11-21] MEDS: INSULIN GLARGINE 100 UNITS/ML 10 ML VIAL SQ SCH (09:00)
[2020-11-21] MEDS: PANTOPRAZOLE 40 MG/VIAL IVP SCH (09:32)
[2020-11-21] MEDS: DEXAMETHASONE 4 MG TAB PO SCH (09:32)
[2020-11-21] MEDS: AMLODIPINE 5 MG TAB PO SCH (09:33)
[2020-11-21] MEDS: LEVOFLOXACIN 500 MG/D5W 100 ML 100 ML IV SCH (14:16)
[2020-11-21] MEDS: DEXTROSE 5%-WATER 1,000 ML IV SCH (14:32)
[2020-11-21] MEDS ORDERED: AMLO-257 PO (17:24)
== END 2020-11-21 20:00 | disposition left against medical advice (07) | DRG 871 ==
LOC: EDH 13:49 → OBSVTOIN 16:46 → EDHIP 16:46 → 4AH 11-10 04:00
PROVIDERS: ADMIT Internal Medicine; ATTEND Internal Medicine
PROC: 5A09357 Assistance with Respiratory Ventilation, Less than 24 Consecutive Hours, Continuous Positive Airway Pressure (ICD-10-PCS; principal; 2020-11-10)
PROC: 5A0935A Assistance with Respiratory Ventilation, Less than 24 Consecutive Hours, High Flow/Velocity Cannula (ICD-10-PCS; 2020-11-10)
PROC: 5A0935A Assistance with Respiratory Ventilation, Less than 24 Consecutive Hours, High Flow/Velocity Cannula (ICD-10-PCS; 2020-11-13)
DX: A41.89 Other specified sepsis (principal); U07.1 COVID-19; J12.82 Pneumonia due to coronavirus disease 2019; J96.01 Acute respiratory failure with hypoxia; E43 Unspecified severe protein-calorie malnutrition; G93.41 Metabolic encephalopathy; J15.5 Pneumonia due to Escherichia coli; N17.9 Acute kidney failure, unspecified; N30.00 Acute cystitis without hematuria; J81.1 Chronic pulmonary edema; E87.0 Hyperosmolality and hypernatremia; E87.1 Hypo-osmolality and hyponatremia; D62 Acute posthemorrhagic anemia; K92.2 Gastrointestinal hemorrhage, unspecified; N18.9 Chronic kidney disease, unspecified; E86.0 Dehydration; E87.5 Hyperkalemia; I12.9 Hypertensive chronic kidney disease with stage 1 through stage 4 chronic kidney disease, or unspecified chronic kidney disease; R53.81 Other malaise; E11.22 Type 2 diabetes mellitus with diabetic chronic kidney disease; B96.20 Unspecified Escherichia coli [E. coli] as the cause of diseases classified elsewhere; B97.89 Other viral agents as the cause of diseases classified elsewhere; E78.00 Pure hypercholesterolemia, unspecified; E78.5 Hyperlipidemia, unspecified; E87.8 Other disorders of electrolyte and fluid balance, not elsewhere classified; K75.9 Inflammatory liver disease, unspecified; R62.7 Adult failure to thrive; Z68.22 Body mass index [BMI] 22.0-22.9, adult; Z74.01 Bed confinement status; Z79.01 Long term (current) use of anticoagulants
CPT/HCPCS: 31720; 36415; 36600; 70450; 71045; 74018; 76770; 80048; 80053; 81001; 82140; 82270; 82550; 82570; 82728; 82803; 82948; 83036; 83605; 83615; 83735; 83874; 83935; 84145; 84300; 84443; 84484; 85025; 85378; 85610; 85651; 85730; 86140; 87040; 87071; 87077; 87088; 87186; 87205; 87635; 87804; 92610; 93005; 93970; 94660; 94760; 99291; C9113; C9803; G0378; J0696; J1100; J1644; J1650; J1815; J1940; J1956; J2543; J2920; J2930; J3490; J7050; J7070; J8540; Q0167